=== PATIENT | male | born 1970 | race African-American/Black ===

== ENCOUNTER 2016-12-17 09:43 | Emergency (ER) | payer SELFPAY ==
[~2016-12-17 09:43] MED LIST: HYDR-971 PO
[2016-12-17 10:18] VITALS: BP 180/93
--- NOTE | 2016-12-17 11:12 | PHYS DOC ---
Past Medical History Past Medical History: Hypertension, Other Additional Past Medical Histor: GOUT, TORN MENISCUS (BILATERALLY) Past Surgical History: No Surgical History Additional Information: occasional cigars Alcohol Use: Occasionally Additional Information: 1 drink per day Drug Use: None Adult General Chief Complaint Chief Complaint: MECHANICAL FALL HPI HPI Patient is a 46 year old male with history of hypertension who presents today complaining of left knee pain that began last night after he fell on it coming out of the shower. He has history of chronic knee pain he states his knee gave out and he fell. Patient states he is from [place]. Review of Systems Review of Systems Constitutional: Denies fever or chills [] Eyes: Denies change in visual acuity, redness, or eye pain [] HENT: Denies nasal congestion or sore throat [] Respiratory: Denies cough or shortness of breath [] Cardiovascular: No additional information not addressed in HPI [] GI: Denies abdominal pain, nausea, vomiting, bloody stools or diarrhea [] : Denies dysuria or hematuria Musculoskeletal: Left knee pain Integument: Denies rash or skin lesions [] Neurologic: Denies headache, focal weakness or sensory changes [] Endocrine: Denies polyuria or polydipsia [] Current Medications Current Medications Current Medications Medications (Trade) Dose Ordered Sig/Kenton Start Time Stop Time Status Last Admin Dose Admin Acetaminophen/ Hydrocodone Bitart (Lortab 5/325) 2 tab 1X ONCE 12/17/16 12:15 12/17/16 12:16 Prednisone (Prednisone) 60 mg 1X ONCE 12/17/16 12:15 12/17/16 12:16 Allergies Allergies Allergies Coded Allergies Type Severity Reaction Last Updated Verified lisinopril Allergy Intermediate Itching 07/30/16 Yes Physical Exam Physical Exam Constitutional: Well developed, well nourished, no acute distress, non-toxic appearance. [] HENT: Normocephalic, atraumatic, bilateral external ears normal, oropharynx moist, no oral exudates, nose normal. [] Eyes: PERRLA, EOMI, conjunctiva normal, no discharge. [] Neck: Normal range of motion, no tenderness, supple, no stridor. [] Cardiovascular:Heart rate regular rhythm, no murmur [] Lungs & Thorax: Bilateral breath sounds clear to auscultation [] Abdomen: Bowel sounds normal, soft, no tenderness, no masses, no pulsatile masses. [] Skin: Warm, dry, no erythema, no rash. [] Back: No tenderness, no CVA tenderness. [] Extremities: Left knee is in a brace. We are not able to manipulate the left knee due to the brace and pain. +2 left pedal pulse. Cap refill less than 2 seconds and left lower extremity. Sensation intact to the left lower extremity. Neurologic: Alert and oriented X 3, normal motor function, normal sensory function, no focal deficits noted. [] Psychologic: Affect normal, judgement normal, mood normal. [] Current Patient Data Vital Signs Vital Signs Date Time Temp Pulse Resp B/P Pulse Ox O2 Delivery O2 Flow Rate FiO2 12/17/16 10:18 97.8 78 18 100 Room Air 97.8 EKG EKG [] Radiology/Procedures Radiology/Procedures []PROCEDURE: KNEE LEFT 4V KNEE LEFT 4V History:Fall last night in bath tub, pain Comparison: 09/21/2016 Findings:4 views of the left knee are submitted. There is again moderate suprapatellar joint effusion. There is again moderate tricompartmental osteoarthritic change. No acute fracture is identified. Impression: 1.No acute fracture is identified. There is again suprapatellar joint effusion and tricompartmental osteoarthritic change. DICTATED and SIGNED BY: AHSAN DEVINE MD DATE: 12/17/16 1147 CC: NICK JAIN APRN; NON,STAFF ~ Course & Med Decision Making Course & Med Decision Making Pertinent Labs and Imaging studies reviewed. (See chart for details) Patient is in the ED with left knee pain after falling on it yesterday. He has a history of chronic knee pain. Left knee x-ray interpreted by radiologist as negative for any acute findings,suprapatellar joint effusion and tricompartment arthritis Left knee in a brace applied by patient himself. Neurovascular exam on the left lower extremity is normal, cap refill less than 2 seconds. Ice elevation encouraged. Discharged with naproxen, prednisone, and [place] which patient states he takes of chronic basis but ran out of it. Patient is to follow-up with his own orthopedic doctor in [place]. Dragon Disclaimer Dragon Disclaimer This electronic medical record was generated, in whole or in part, using a voice recognition dictation system. Departure Departure Impression: Primary Impression: Contusion of knee, left Additional Impressions: Fall from standing Effusion of knee joint, left Arthritis of knee, left Disposition: 01 HOME, SELF-CARE Condition: STABLE Referrals: NON,STAFF (PCP) Follow-up with your orthopedic doctor in [place]. Patient Instructions: Knee Pain, [id number] Additional Instructions: You were seen for knee pain after falling on it. Your x-ray is negative for any acute findings. Follow-up with your own orthopedic doctor in [place]. Ice and elevate the extremity. Scripts Prednisone 50 Mg Tablet1 Tab PO DAILY #4 TAB Prov:NICK JAIN APRN 12/17/16 Hydrocodone/Apap 5-325 ([place] 5-325 Tablet)1 Each Tablet1-2 Tab PO Q4-6HRS #20 TAB Prov:NICK JAIN APRN 12/17/16 Problem Qualifiers Additional Impressions: Fall from standing Encounter type: initial encounter Qualified Code: W19.XXXA - Unspecified fall, initial encounter NICK JAIN APRN Dec 17, 2016 11:12
--- NOTE | 2016-12-17 11:52 | RAD ---
KNEE LEFT 4V History:Fall last night in bath tub, pain Comparison: 09/21/2016 Findings:4 views of the left knee are submitted. There is again moderate suprapatellar joint effusion. There is again moderate tricompartmental osteoarthritic change. No acute fracture is identified. Impression: 1.No acute fracture is identified. There is again suprapatellar joint effusion and tricompartmental osteoarthritic change.
[2016-12-17] MEDS ORDERED: PRED50TA PO (12:13)
[2016-12-17] MEDS ORDERED: HYDR-971 PO (12:13)
[2016-12-17] MEDS ORDERED: PREDNISONE 20 MG TABLET PO ONE (12:15)
[2016-12-17] MEDS ORDERED: HYDROCODONE/APAP 5/325MG TABLET. PO ONE (12:15)
== END 2016-12-17 12:19 | disposition home or self-care (01) ==
LOC: ER 09:43
DX: S80.02XA Contusion of left knee, initial encounter (principal); M13.862 Other specified arthritis, left knee; I10 Essential (primary) hypertension; M10.9 Gout, unspecified; F17.210 Nicotine dependence, cigarettes, uncomplicated; Z88.8 Allergy status to other drugs, medicaments and biological substances; W18.39XA Other fall on same level, initial encounter; Y93.89 Activity, other specified; Y92.89 Other specified places as the place of occurrence of the external cause; Y99.8 Other external cause status
CPT/HCPCS: 73564; 99284; J7512

== ENCOUNTER 2021-06-30 20:06 | Emergency (ER) | payer SELFPAY ==
[~2021-06-30] VITALS: Ht 177.8 cm; Wt 112.0 kg
[~2021-06-30 20:06] MED LIST changes: +HYDR-3164 PO; -HYDR-971 PO; +PRED50TA PO
[2021-06-30 20:31] VITALS: BP 172/94
--- NOTE | 2021-06-30 20:56 | PHYS DOC ---
Past Medical History Past Medical History: Hypertension, Sciatica, Other Additional Past Medical Histor: Gout Past Surgical History: Other Additional Past Surgical Histo: back, neck Smoking Status: Never Smoker Alcohol Use: None Drug Use: None General Adult EDM: Chief Complaint: HIP PAIN HPI: HPI: Patient is a 51 year old male with history of hypertension, sciatica, who presents to the ED today complaining of 3 out of 10 exacerbation of chronic sciatic pain running through the left lower extremity. Symptoms got worse this evening. Patient states he tried his own pain medicine at home with no relief. Denies any injuries. Denies any numbness or tingling to bilateral lower extremities. Denies any loss of bowel/bladder function. Patient states he typically gets a shot of Toradol and steroids and this alleviates his pain. He states he is from [place]. Review of Systems: Review of Systems: Constitutional: Denies fever or chills. [] GI: Denies abdominal pain, nausea, vomiting, bloody stools or diarrhea. [] : Denies dysuria. [] Musculoskeletal: Reports pain to the left lower back radiating to the left lower extremity Integument: Denies rash. [] Neurologic: Denies headache, focal weakness or sensory changes. [] Psychiatric: Denies depression or anxiety. [] Heart Score: C/O Chest Pain: N/A Risk Factors: Risk Factors: DM, Current or recent (<one month) smoker, HTN, HLP, family history of CAD, obesity. Risk Scores: Score 0 - 3: 2.5% MACE over next 6 weeks - Discharge Home Score 4 - 6: 20.3% MACE over next 6 weeks - Admit for Clinical Observation Score 7 - 10: 72.7% MACE over next 6 weeks - Early Invasive Strategies Current Medications: Current Medications Medications (Trade) Dose Ordered Sig/Kenton Start Time Stop Time Status Last Admin Dose Admin Dexamethasone Sodium Phosphate (Decadron) 10 mg 1X ONCE 06/30/21 21:15 06/30/21 21:16 Ketorolac Tromethamine (Toradol Im) 60 mg 1X ONCE 06/30/21 21:15 06/30/21 21:16 Allergies: Allergies: Allergies Coded Allergies Type Severity Reaction Last Updated Verified lisinopril Allergy Intermediate Itching 06/30/21 Yes Physical Exam: PE: Constitutional: Well developed, well nourished, no acute distress, non-toxic appearance. [] Skin: Warm, dry, no erythema, no rash. [] Back: No tenderness, no CVA tenderness. [] Extremities: No tenderness, no cyanosis, no clubbing, ROM intact, no edema. Bilateral knees in braces. Neurologic: Alert and oriented X 3, normal motor function, normal sensory function, no focal deficits noted. [] Psychologic: Affect normal, judgement normal, mood normal. [] Current Patient Data: Vital Signs: Vital Signs Date Time Temp Pulse Resp B/P (MAP) Pulse Ox O2 Delivery O2 Flow Rate FiO2 06/30/21 20:31 98.7 72 17 172/94 100 Room Air 98.7 EKG: EKG: [] Radiology/Procedures: Radiology/Procedures: [] Course & Med Decision Making: Course & Med Decision Making Pertinent Labs and Imaging studies reviewed. (See chart for details) This is a 51-year-old male patient presenting to the ED today with exacerbation of sciatic pain to the left lower extremity, patient has no cauda equina syndrome symptoms. Patient requested Toradol and Decadron which were given in the ED. Discharged to home. Follow-up with his own doctor when he gets back home to [facility] Disclaimer: [facility] Disclaimer: This electronic medical record was generated, in whole or in part, using a voice recognition dictation system. Departure Departure Impression: Primary Impression: Left sciatic nerve pain Disposition: 01 HOME / SELF CARE / HOMELESS Condition: STABLE Referrals: NON,STAFF (PCP) Follow-up with your own doctor when you get back home Patient Instructions: Sciatica with [facility] Additional Instructions: You were evaluated in the emergency room for sciatic pain. Please continue taking your pain medicine at home and follow-up with your own doctor Scripts Cyclobenzaprine Hcl (CYCLOBENZAPRINE HCL) 10 Mg Tablet 1 TAB PO TID, #30 TAB Prov: NICK JAIN AMADOU 06/30/21 Hydrocodone Bit/Acetaminophen (HYDROCODONE-APAP 5-325 ) 1 Tab Tablet 1 TAB PO PRN Q6HRS PRN for PAIN, #14 TAB 0 Refills Prov: NICK JAIN Bertram TOBAR 06/30/21 NICK JAIN APRN Jun 30, 2021 20:55
[2021-06-30] MEDS ORDERED: HYDR-2761 PO (20:59)
[2021-06-30] MEDS ORDERED: CYCL10TA2 PO (20:59)
[2021-06-30] MEDS ORDERED: KETOROLAC 60 MG/2 ML VIAL. IM ONE (21:15)
[2021-06-30] MEDS ORDERED: DEXAMETHASONE SOD PHOS 20 MG/5 ML VIAL. IM ONE (21:15)
== END 2021-06-30 21:34 | disposition home or self-care (01) ==
LOC: ER 20:06
DX: M54.42 Lumbago with sciatica, left side (principal); I10 Essential (primary) hypertension; Z88.8 Allergy status to other drugs, medicaments and biological substances
CPT/HCPCS: 96372; 99284; J1100; J1885